=== PATIENT | female | born 1955 ===

== ENCOUNTER 2017-04-06 20:00 | Emergency (ER) | payer OTHER ==
[2017-04-06 20:04] VITALS: BMI 24.8
[2017-04-06 20:05] VITALS: BP 132/77; PULSE 81; RESP 18; TEMP 98.9; O2SAT 98
[2017-04-06] MEDS ORDERED: Albuterol-Ipratrop 3 mg / 0.5 (3 ml) UD IH STA (20:15)
--- NOTE | 2017-04-06 22:21 | ED PDOC ---
Arrival/HPI - General Chief Complaint: Allergic Reaction Time Seen by Provider: 04/06/17 20:11 - History of Present Illness Narrative History of Present Illness (Text): 04/06/17 20:11 Ashely Herr is a 61 year old female who presents to the emergency department complaining of an allergic reaction that began earlier today. Patient states that she may be allergic to Macrobid which she has been taking for 5 days. Patient says that her last dose was this morning when she began to feel itchy. Patient says that she took Benadryl at 18:00 this morning. Patient denies any other exposure, shortness of breath, chest pain, or any other complaint at this time. PMD: Dr. Low Time/Duration: 24 hours (this morning) Symptom Onset: Gradual Symptom Course: Unchanged Severity Level: Mild Activities at Onset: Light Context: Home Past Medical History - Provider Review Nursing Documentation Reviewed: Yes - Infectious Disease Hx of Infectious Diseases: None - Tetanus Immunization Tetanus Immunization: Unknown - Cardiac Hx Cardiac Arrhythmia: Yes Hx Hypertension: Yes - Pulmonary Hx Asthma: Yes - Neurological Hx Neurological Disorder: No Hx Paralysis: No - HEENT Hx HEENT Disorder: No - Renal Hx Renal Disorder: No Hx Kidney Stones: Yes (stent placement time two) - Endocrine/Metabolic Hx Diabetes Mellitus Type 2: Yes - Hematological/Oncological Hx Blood Disorders: No Hx Blood Transfusions: No Hx Blood Transfusion Reaction: No - Integumentary Hx Dermatological Disorder: No - Musculoskeletal/Rheumatological Hx Musculoskeletal Disorders: No Hx Falls: No - Gastrointestinal Hx Diverticulitis: Yes - Genitourinary/Gynecological Hx Genitourinary Disorders: No (kidney stones) - Psychiatric Hx Depression: Yes Hx Emotional Abuse: No Hx Physical Abuse: No Hx Substance Use: No - Past Surgical History Past Surgical History: No Previous - Surgical History Hx Amputation: No Hx Appendectomy: No Hx Section: Yes (x2) Hx Cholecystectomy: No Hx Gastric Bypass Surgery: No Hx Hysterectomy: No Hx Joint Replacement: No Hx Kidney Transplant: No Hx Liver Transplant: No Hx Mastectomy: No Hx Open Heart Surgery: No Hx Orthopedic Surgery: No Hx Splenectomy: No Hx Valve Replacement: No - Anesthesia Hx Anesthesia: Yes Hx Anesthesia Reactions: No Hx Malignant Hyperthermia: No - Suicidal Assessment Feels Threatened In Home Enviroment: No Family/Social History - Physician Review Nursing Documentation Reviewed: Yes Family/Social History: No Known Family HX Smoking Status: Never Smoked Hx Alcohol Use: No Hx Substance Use: No Hx Substance Use Treatment: No Allergies/Home Meds Allergies/Adverse Reactions: Allergies nitrofurantoin [From Macrobid] Allergy (Verified 09/27/16 23:41) RASH nitrofurantoin macrocrystalline [From Macrobid] Allergy (Verified 09/27/16 23:41 ) RASH shellfish derived Allergy (Verified 09/27/16 23:41) ANAPHYLAXIS tramadol Allergy (Verified 09/27/16 23:41) RASH Home Medications: Home Meds Medication Instructions Recorded Confirmed Rosuvastatin Calcium [Crestor] 40 mg PO DAILY 05/28/12 04/06/17 Aspirin [Ecotrin] 81 mg PO DAILY 05/16/16 04/06/17 Metoprolol Tartrate [Lopressor] 25 mg PO BID 05/16/16 04/06/17 [place]-3 Acid Ethyl Esters [Lovaza] 1 g PO BID 05/16/16 04/06/17 metFORMIN [glucOPHAGE] 500 mg PO BID 05/16/16 04/06/17 Review of Systems - Physician Review All systems were reviewed & negative as marked: Yes - Review of Systems Constitutional: Other (Allergic reaction; itchy). absent: Fevers, Night Sweats Eyes: absent: Vision Changes ENT: absent: Hearing Changes Respiratory: absent: SOB, Cough Cardiovascular: absent: Chest Pain Gastrointestinal: absent: Abdominal Pain Genitourinary Female: absent: Dysuria Musculoskeletal: absent: Arthralgias Skin: absent: Rash, Pruritis Neurological: absent: Headache Endocrine: absent: Diaphoresis Hemo/Lymphatic: absent: Adenopathy Psychiatric: absent: Depression Physical Exam Vital Signs Reviewed: Yes Vital Signs Temp Pulse Resp BP Pulse Ox 04/06/17 20:04 98.9 F 81 18 132/77 98 Temperature: Afebrile Blood Pressure: Normal Pulse: Regular Respiratory Rate: Normal Appearance: Positive for: Well-Appearing, Non-Toxic, Comfortable Pain Distress: None Mental Status: Positive for: Alert and Oriented X 3 - Systems Exam Head: Present: Atraumatic, Normocephalic Pupils: Present: PERRL Extroacular Muscles: Present: EOMI Conjunctiva: Present: Normal Mouth: Present: Moist Mucous Membranes Pharnyx: Present: Normal. No: Strider Neck: Present: Normal Range of Motion Respiratory/Chest: Present: Clear to Auscultation, Good Air Exchange. No: Respiratory Distress, Accessory Muscle Use Cardiovascular: Present: Regular Rate and Rhythm, Normal S1, S2. No: Murmurs Abdomen: Present: Normal Bowel Sounds. No: Tenderness, Distention, Peritoneal Signs Back: Present: Normal Inspection Upper Extremity: Present: Normal Inspection. No: Cyanosis, Edema Lower Extremity: Present: Normal Inspection. No: Edema Neurological: Present: GCS=15, CN II-XII Intact, Speech Normal Skin: Present: Warm, Dry, Normal Color. No: Rashes Psychiatric: Present: Alert, Oriented x 3, Normal Insight, Normal Concentration Medical Decision Making ED Course and Treatment: 04/06/17 20:20 Impression: 61 year old female complaining of an allergic reaction after taking Macrobid this morning. Differential Diagnosis include but are not limited to: Allergic reaction Plan: -- Duoneb and Prednisone -- Reassess and disposition Prior Visits: Notes and results from previous visits were reviewed. Patient last seen in ED on 09/28/16 for pruritic rash that evening. Patient was discharged home. Progress Notes: Reevaluation: On reevaluation the patient feels better and is in no acute distress. I have discussed the results and plan with the patient, who expresses understanding. Patient given the opportunity to ask question, all questions were answered and there is agreement with the plan to discharge the patient home. Patient is stable for discharge. Patient was instructed to follow up with physician/clinic in 1-2 days or return if symptoms persist/worsen or new concerning symptoms arise. - Medication Orders Current Medication Orders: Discontinued Medications Albuterol/Ipratropium (Duoneb 3 Mg/0.5 Mg (3 Ml) Ud) 3 ml IH STAT STA Stop: 04/06/17 20:16 Last Admin: 04/06/17 20:39 Dose: 3 ml Prednisone (Prednisone Tab) 60 mg PO STAT ONE Stop: 04/06/17 20:16 Last Admin: 04/06/17 20:39 Dose: 60 mg - Scribe Statement The provider has reviewed the documentation as recorded by the Ashley Bearden Provider Scribe Attestation: All medical record entries made by the Sherlyniblelo were at my direction and personally dictated by me. I have reviewed the chart and agree that the record accurately reflects my personal performance of the history, physical exam, medical decision making, and the department course for this patient. I have also personally directed, reviewed, and agree with the discharge instructions and disposition. Disposition/Present on Arrival - Present on Arrival Any Indicators Present on Arrival: No History of DVT/PE: No History of Uncontrolled Diabetes: No Urinary Catheter: No History of Decub. Ulcer: No History Surgical Site Infection Following: None - Disposition Have Diagnosis and Disposition been Completed?: Yes Diagnosis: Allergic reaction Disposition: HOME/ ROUTINE Disposition Time: 20:50 Condition: GOOD Discharge Instructions (ExitCare): General Allergic Reaction (ED) Additional Instructions: Thank you for letting us take care of you today. Your provider was Dr. Vicente. You were treated for an allergic reaction. The emergency medical care you received today was directed at your acute symptoms. If you were prescribed any medication, please fill it and take as directed. It may take several days for your symptoms to resolve. Return to the Emergency Department if your symptoms worsen, do not improve, or if you have any other problems. Please contact your doctor or call one of the physicians/clinics you have been referred to that are listed on the Patient Visit Information form that is included in your discharge packet. Bring any paperwork you were given at discharge with you along with any medications you are taking to your follow up visit. Our treatment cannot replace ongoing medical care by a primary care provider (PCP) outside of the emergency department. Thank you for allowing the [facility] team to be part of your care today. Follow up with your doctor in 1-2 days for re-evaluation. Prescriptions: predniSONE [Prednisone] 40 mg PO DAILY #10 tab Referrals: Agata Low MD [Primary Care Provider] - Follow up with primary
== END 2017-04-06 21:15 | disposition home or self-care (01) ==
LOC: ED 20:00
DX: T78.49XA Other allergy, initial encounter (principal); X58.XXXA Exposure to other specified factors, initial encounter

== ENCOUNTER 2018-11-12 22:46 | Emergency (ER) | payer OTHER ==
[2018-11-12 22:47] VITALS: BMI 24.8
[2018-11-12 23:54] VITALS: TEMP 98.3
[2018-11-13] MEDS ORDERED: Sodium Chloride 0.9% 1,000 ML IV STA (00:37)
--- NOTE | 2018-11-13 00:45 | ED PDOC ---
Arrival/HPI - General Chief Complaint: Female Genitourinary Time Seen by Provider: 11/12/18 23:53 Historian: Patient - History of Present Illness Narrative History of Present Illness (Text): 11/13/18 00:38 63 year old female, whose past medical history includes hypertension, hyperlipidemia, GERD, asthma, atrial fibrillation, and asthma, who presents to the emergency department with hematuria, since this morning. Patient states she went to [facility] ER where she was told it was not vaginal bleeding, but blood in her urine. Patient states she was given medication which she took, and found out was Macrobid, which she is allergic to. Patient states she went to her PMD, and was given 2 medications, and has been having big clots in her urine ever since. Patient also informs of a history of kidney stones. Patient denies any fevers, chills, headache, dizziness, chest pain, shortness of breath, cough, nausea, vomiting, diarrhea, neck pain, or any other complaint. PMD: Dr. Sherry Low Time/Duration: 24 hours Symptom Onset: Gradual Symptom Course: Unchanged Quality: Cramping Activities at Onset: Light Context: Home Past Medical History - Provider Review Nursing Documentation Reviewed: Yes - Infectious Disease Hx of Infectious Diseases: None - Tetanus Immunization Tetanus Immunization: Unknown - Cardiac Hx Cardiac Arrhythmia: Yes Hx Hypertension: Yes - Pulmonary Hx Asthma: Yes - Neurological Hx Neurological Disorder: No Hx Paralysis: No - HEENT Hx HEENT Disorder: No - Renal Hx Renal Disorder: No Hx Kidney Stones: Yes (stent placement time two) - Endocrine/Metabolic Hx Diabetes Mellitus Type 2: Yes - Hematological/Oncological Hx Blood Disorders: No Hx Blood Transfusions: No Hx Blood Transfusion Reaction: No - Integumentary Hx Dermatological Disorder: No - Musculoskeletal/Rheumatological Hx Musculoskeletal Disorders: No Hx Falls: No - Gastrointestinal Hx Diverticulitis: Yes - Genitourinary/Gynecological Hx Genitourinary Disorders: No (kidney stones) - Psychiatric Hx Depression: Yes Hx Emotional Abuse: No Hx Physical Abuse: No Hx Substance Use: No - Past Surgical History Past Surgical History: No Previous - Surgical History Hx Amputation: No Hx Appendectomy: No Hx Section: Yes (x2) Hx Cholecystectomy: No Hx Gastric Bypass Surgery: No Hx Hysterectomy: No Hx Joint Replacement: No Hx Kidney Transplant: No Hx Liver Transplant: No Hx Mastectomy: No Hx Open Heart Surgery: No Hx Orthopedic Surgery: No Hx Splenectomy: No Hx Valve Replacement: No - Anesthesia Hx Anesthesia: Yes Hx Anesthesia Reactions: No Hx Malignant Hyperthermia: No - Suicidal Assessment Feels Threatened In Home Enviroment: No Family/Social History - Physician Review Nursing Documentation Reviewed: Yes Family/Social History: No Known Family HX Smoking Status: Never Smoked Hx Alcohol Use: No Hx Substance Use: No Hx Substance Use Treatment: No Allergies/Home Meds Allergies/Adverse Reactions: Allergies nitrofurantoin [From Macrobid] Allergy (Verified 09/27/16 23:41) RASH nitrofurantoin macrocrystalline [From Macrobid] Allergy (Verified 09/27/16 23:41) RASH shellfish derived Allergy (Verified 09/27/16 23:41) ANAPHYLAXIS tramadol Allergy (Verified 09/27/16 23:41) RASH Home Medications: Home Meds Medication Instructions Recorded Confirmed Rosuvastatin Calcium [Crestor] 40 mg PO DAILY 05/28/12 04/06/17 Aspirin [Ecotrin] 81 mg PO DAILY 05/16/16 04/06/17 Metoprolol Tartrate [Lopressor] 25 mg PO BID 05/16/16 04/06/17 [place]-3 Acid Ethyl Esters [Lovaza] 1 g PO BID 05/16/16 04/06/17 metFORMIN [glucOPHAGE] 500 mg PO BID 05/16/16 04/06/17 Review of Systems - Physician Review All systems were reviewed & negative as marked: Yes - Review of Systems Constitutional: absent: Fevers, Night Sweats Respiratory: absent: SOB, Cough Cardiovascular: absent: Chest Pain Gastrointestinal: Abdominal Pain. absent: Diarrhea, Nausea, Vomiting Genitourinary Female: Hematuria. absent: Vaginal Bleeding Musculoskeletal: Back Pain. absent: Neck Pain Neurological: absent: Headache, Dizziness Physical Exam Vital Signs Reviewed: Yes Vital Signs Temp Pulse Resp BP Pulse Ox 11/12/18 23:51 98.3 F 72 18 131/75 100 Temperature: Afebrile Blood Pressure: Normal Pulse: Regular Respiratory Rate: Normal Appearance: Positive for: Well-Appearing, Non-Toxic, Comfortable Pain Distress: None Mental Status: Positive for: Alert and Oriented X 3 - Systems Exam Head: Present: Atraumatic, Normocephalic Pupils: Present: PERRL Extroacular Muscles: Present: EOMI Conjunctiva: Present: Normal Mouth: Present: Moist Mucous Membranes Neck: Present: Normal Range of Motion Respiratory/Chest: Present: Clear to Auscultation, Good Air Exchange. No: Respiratory Distress, Accessory Muscle Use Cardiovascular: Present: Regular Rate and Rhythm, Normal S1, S2. No: Murmurs Abdomen: No: Tenderness, Distention, Peritoneal Signs Back: Present: Normal Inspection. No: CVA Tenderness (No CVA tenderness bilaterally) Upper Extremity: Present: Normal Inspection. No: Cyanosis, Edema Lower Extremity: Present: Normal Inspection. No: Edema Neurological: Present: GCS=15, CN II-XII Intact, Speech Normal Skin: Present: Warm, Dry, Normal Color. No: Rashes Psychiatric: Present: Alert, Oriented x 3, Normal Insight, Normal Concentration Medical Decision Making ED Course and Treatment: 11/13/18 00:48 Impression: 63 year old female presents with hematuria Plan: -- CT ABD -- CMP, CBC -- Urine culture -- Urinalysis -- Reassess and disposition Prior Visits: Notes and results from previous visits were reviewed Progress Notes: - RAD Interpretation Narrative RAD Interpretations (Text): 11/13/18 02:37 CT SCAN OF THE ABDOMEN AND PELVIS WITHOUT ORAL OR IV CONTRAST. CLINICAL INDICATION: History of renal stones. History of hematuria. TECHNIQUE: Axial and reformatted sagittal and coronal images of the abdomen pelvis obtained without IV contrast administration. COMPARISON: 04/28/2013. FINDINGS: Small sliding hiatal hernia. The visualized lung bases are unremarkable. Moderately enlarged unenhanced liver. Normal gallbladder and extrahepatic biliary system. Normal unenhanced spleen. Normal pancreas. Normal bilateral adrenal glands. Bilateral renal stones are noted with the largest measuring 8 mm. Mild fullness of the left collecting system. Normal size of the right kidney. There is no right renal mass. There is no right hydronephrosis. Normal visualized right ureter. Normal size of the left kidney. There is no left renal mass. Normal visualized stomach. Normal small intestine. Uncomplicated divertic ulosis of the colon. The appendix is visualized and appears normal. There is no demonstrated peritoneal fluid. Normal abdominal aorta. Normal inferior vena cava. Normal retroperitoneum. Normal urinary bladder. There is no pelvic mass lesion or lymphadenopathy. There is no pelvic fluid. Normal abdominal wall. Normal osseous structures. IMPRESSION: Bilateral nonobstructing nephrolithiasis. Radiology Orders: 11/13/18 00:37 ABDOMEN W/O CONTRAST [CT] Stat [place] Worker: Radiologist - Ashley Statement The provider has reviewed the documentation as recorded by the Scribe Fran Coulter Provider Scribe Attestation: All medical record entries made by the Scribe were at my direction and personally dictated by me. I have reviewed the chart and agree that the record accurately reflects my personal performance of the history, physical exam, medical decision making, and the department course for this patient. I have also personally directed, reviewed, and agree with the discharge instructions and disposition. Disposition/Present on Arrival - Present on Arrival History of DVT/PE: No History of Uncontrolled Diabetes: No Urinary Catheter: No History of Decub. Ulcer: No History Surgical Site Infection Following: None - Disposition Diagnosis: Bilateral nephrolithiasis Disposition: HOME/ ROUTINE Patient Problems: Current Active Problems Problem Status Onset Bilateral nephrolithiasis Acute Condition: STABLE Discharge Instructions (ExitCare): Kidney Stones (DC), Extracorporeal Shock Wave Lithotripsy (DC), Laser Lithotripsy for Kidney Stones (DC) Print Language: LUX[place] Additional Instructions: All medical record entries made by the Scribe were at my direction and personally dictated by me. I have reviewed the chart and agree that the record accurately reflects my personal performance of the history, physical exam, medical decision making, and the department course for this patient. I have also personally directed, reviewed, and agree with the discharge instructions and disposition. Please follow up with your PCP Please schedule an appointment with any of the urologists listed on this sheet Please take medications as prescribed Prescriptions: Cephalexin [Keflex] 500 mg PO BID 5 Days #10 capsule Referrals: Agata Low MD [Primary Care Provider] - Follow up with primary Yo Marley MD [Staff Provider] - Follow up with primary Carrie Sahu MD [Staff Provider] - Follow up with primary Rogelio Sahu MD [Staff Provider] - Follow up with primary Forms: [employer] (Turkish)
[2018-11-13 00:51] LABS: URINE BILIRUBIN NEGATIVE (NEGATIVE); URINE BLOOD LARGE (NEGATIVE); URINE GLUCOSE (UA) NEGATIVE (NEGATIVE); URINE LEUKOCYTE ESTERASE SMALL Leu/uL (NEGATIVE); URINE PROTEIN 100 mg/dL (<30 mg/dL)
[2018-11-13 00:53] LABS: URINE APPEARANCE SL CLOUDY (CLEAR); URINE COLOR DARK YELLOW (YELLOW)
[2018-11-13 01:06] LABS: URINE RBC 20 - 25 /hpf (0-2)
[2018-11-13 01:06] LABS: BASO # 0.03 K/mm3 (0.0-2.0); BASO % 0.4 % (0.0-3.0); EOS # 0.2 (0.0-0.7); EOS % 2.8 % (1.5-5.0); HEMOGLOBIN 11.7 g/dL (12.0-16.0); LYMPH % 27.8 % (22.0-35.0); MEAN CELL VOLUME 86.9 fl (80.0-105.0); MEAN CORPUSCULAR HEMOGLOBIN 28.5 pg (25.0-35.0); MEAN CORPUSCULAR HGB CONC 32.8 g/dl (31.0-37.0); MEAN PLATELET VOLUME 12.4 fl (7.0-11.0); MONO # 0.4 (0.1-0.6); MONO % 5.1 % (1.0-6.0); RBC 4.11 10^6/uL (3.5-6.1); RED CELL DISTRIBUTION WIDTH 13.5 % (11.5-14.5)
[2018-11-13 01:07] LABS: URINE BACTERIA SMALL /hpf
[2018-11-13 01:20] LABS: ALB/GLOB RATIO 1.4 (1.1-1.8); ALBUMIN 4.6 g/dL (3.0-4.8); ALT/SGPT 20 U/L (7-56); AST/SGOT 23 U/L (14-36); BLOOD UREA NITROGEN 18 mg/dL (7-21); CALCIUM 9.9 mg/dL (8.4-10.5); GFR NON-AFRICAN AMERICAN > 60
[2018-11-13] MEDS ORDERED: cefTRIAXone 1 gm 1 GM/100 ML BAG IVPB STA (01:47)
[2018-11-13 03:03] VITALS: BP 112/62; PULSE 71; RESP 17; O2SAT 99
--- NOTE | 2018-11-13 10:53 | CT ---
Date of service: 11/13/2018 PROCEDURE: CT Abdomen and Pelvis without intravenous contrast HISTORY: h/o renal stones w/ hematuria COMPARISON: 04/28/2013 TECHNIQUE: Without contrast.. Contrast dose: Radiation dose: Total exam DLP = 256.22 mGy-cm. This CT exam was performed using one or more of the following dose reduction techniques: Automated exposure control, adjustment of the mA and/or kV according to patient size, and/or use of iterative reconstruction technique. FINDINGS: LOWER THORAX: Unremarkable. LIVER: Unremarkable. No gross lesion or ductal dilatation. GALLBLADDER AND BILE DUCTS: Unremarkable. PANCREAS: Unremarkable. No gross lesion or ductal dilatation. SPLEEN: Unremarkable. ADRENALS: Unremarkable. No mass. KIDNEYS AND URETERS: Multiple bilateral nonobstructing stones are seen. There are no ureteral stones and no evidence of hydronephrosis VASCULATURE: Unremarkable. No aortic aneurysm. No aortic atherosclerotic calcification or mural plaque present. BOWEL: Unremarkable. No obstruction. No gross mural thickening. APPENDIX: Unremarkable. Normal appendix. PERITONEUM: Unremarkable. No free fluid. No free air. LYMPH NODES: Unremarkable. No enlarged lymph nodes. BLADDER: Unremarkable. REPRODUCTIVE: Unremarkable. BONES: No acute fracture. OTHER FINDINGS: The report concurs with the preliminary [facility] report IMPRESSION: Multiple bilateral nonobstructing stones are seen. There are no ureteral stones and no evidence of hydronephrosis
== END 2018-11-13 03:02 | disposition home or self-care (01) ==
LOC: ED 22:46
DX: N20.0 Calculus of kidney (principal); I48.91 Unspecified atrial fibrillation; I10 Essential (primary) hypertension; E78.5 Hyperlipidemia, unspecified; E11.9 Type 2 diabetes mellitus without complications
CPT/HCPCS: 74176; 80053; 81001; 85025; 86850; 86900; 87086; 96361; 96365; 99283; J0696; J7030